=== PATIENT | female | born 1950 | race Caucasian/White ===

== ENCOUNTER → 2017-11-18 | Outpatient (CLI) | payer MEDICARE, OTHER ==
--- NOTE | 2017-11-18 15:17 | KCIC ---
PA and lateral chest radiograph and right rib radiographs. History: Right rib pain, fall, trauma to the right side, anticoagulated. Comparison: None. Findings: PA and lateral chest radiograph. Cardiomediastinal silhouette is within normal limits for size. Bilateral lung smith appear clear without evidence of infiltrate, effusion, or pneumothorax. Several thoracic levels demonstrate marginal disc osteophytes. Spinal stimulator is seen with the tip projecting at the spinal canal of the midthoracic spine. IVC filter is seen. 3 views of the right ribs. No displaced rib fractures are identified. Impression: 1. No acute cardiopulmonary process. No acute abnormality identified in the chest. Electronically signed by: Zion Nolan MD (11/18/2017 3:14 PM) [place] [id number]
== END | disposition home or self-care (01) ==
LOC: KCIC 14:44
PROVIDERS: ATTEND Physician Assistant Medical
DX: M25.78 Osteophyte, vertebrae (principal); Z79.01 Long term (current) use of anticoagulants
CPT/HCPCS: 71020; 71100

== ENCOUNTER → 2018-01-11 | Outpatient (CLI) | payer MEDICARE, OTHER ==
[~2018-01-11] MED LIST: CONTRAST GIVEN MC
[2018-01-11] MEDS: IOHEXOL 300 MG/ML 100ML VIAL. IV ×2 (15:43)
[2018-01-11 15:46] LABS: ISTAT CREATININE 0.6 mg/dL (0.6-1.1)
== END | disposition home or self-care (01) ==
LOC: KCIC CT 14:46
DX: D68.51 Activated protein C resistance (principal); R06.02 Shortness of breath; Z86.711 Personal history of pulmonary embolism
CPT/HCPCS: 71275; 82565; Q9967

== ENCOUNTER → 2018-11-09 | Outpatient (CLI) | payer MEDICARE ==
[~2018-11-09] MED LIST changes: +BACL10TA PO; -CONTRAST GIVEN MC; +CRESTOR5 MG PO; +DIPH1TAB PO; +FLUT16SP NS; +LEVO25TA55 PO; +METH5TAB4 PO; +MODA100T26 PO; +OMEP20CA9 PO; +PENT100C PO; +PRAM0.255 PO
--- NOTE | 2018-11-09 13:23 | KCIC ---
Indication: Subcutaneous lumps in the stomach region. TECHNIQUE: Ultrasound of the soft tissue anterior abdominal wall limited. COMPARISON: None FINDINGS: Centrally hypoechoic peripherally hypoechoic mass is seen in the left parasagittal aspect of the umbilicus measuring 2.5 x 2.5 x 1.7 cm without internal vascularity. Another 0.9 x 1.0 x 0.8 cm centrally hypoechoic peripherally hyperechoic nonvascular lesion is seen to the left and superior superior aspect of the umbilical region. Yet another similar lesion measuring 1.4 x 1.0 x 1.4 similar seen directly superior to the medical region in the midline. No sinus tract is seen to the skin. Scratch that IMPRESSION: Total 3 masses as described above. With history of subcutaneous Lovenox shots this may represent small hematomas. Electronically signed by: Ganga Cooper DO (11/09/2018 1:19 PM) [facility]
== END | disposition home or self-care (01) ==
LOC: KCIC US 12:06
PROVIDERS: ATTEND Physician Assistant Medical
DX: R22.2 Localized swelling, mass and lump, trunk (principal)
CPT/HCPCS: 76705

== ENCOUNTER → 2020-05-13 | Outpatient (CLI) | payer MEDICARE ==
[~2020-05-13] MED LIST changes: +OMEP20CA16 PO; -OMEP20CA9 PO
--- NOTE | 2020-05-13 15:58 | KCIC ---
EXAM: CHEST PA LATERAL, RIBS BILAT 3V INDICATION: Reason: CHEST AND RIB PAIN POST FALL 05/11/2020 / Spl. Instructions: / History: . TECHNIQUE: PA and lateral views COMPARISON: CT chest with IV contrast 01/11/2018 FINDINGS: The heart size is normal. The great vessels appear unremarkable. There is no hilar or mediastinal mass. The lungs are clear. There is no pleural effusion or pneumothorax. There are no significant osseous abnormalities. Spinal stimulator electrodes are again evident coursing up the thoracic spine to terminates at the approximate inferior endplate of T7. IMPRESSION: No active cardiopulmonary disease. PROCEDURE: RIBS BILAT 3V STUDY DATE: 05/13/2020 CLINICAL INDICATION / HISTORY: Reason: CHEST AND RIB PAIN POST FALL 05/11/2020 / Spl. Instructions: / History: . TECHNIQUE: 3 views of the bilateral ribs were obtained each COMPARISON: None FINDINGS: No displaced rib fractures. No acute or aggressive osseous lesions. No evidence of a pneumothorax or pleural effusion. IMPRESSION: No displaced rib fractures on either side. Electronically signed by: Jose Alberto Kaur MD (05/13/2020 3:55 PM) [id number]
== END | disposition home or self-care (01) ==
LOC: KCIC 14:51
PROVIDERS: ATTEND Family Medicine
DX: R07.89 Other chest pain (principal); W19.XXXA Unspecified fall, initial encounter
CPT/HCPCS: 71046; 71110

== ENCOUNTER → 2020-11-17 | Outpatient (CLI) | payer MEDICARE ==
--- NOTE | 2020-11-17 18:53 | KCIC ---
DEXA scan 11/17/2020 Clinical History: Postmenopausal female. Risk factors for osteoporosis. Technique: DEXA of the distal left forearm and left hip was performed. The Patient has pain stimulato rs in the lumbar region. FINDINGS: No previous studies are available for comparison. The bone mineral density of the distal left forearm is 0.449 g/cm2 which corresponds with a T-score o f -2.3 . This is consistent with severe osteopenia. The mean bone mineral density of the left hip is 0.841 g/sq cm. This corresponds to a T score of -0.8 . This is within the lower limits of normal. By [employer] on Osteoporosis criteria, a T score of 0 to-1 SD is considered to be within normal limits. A T score of -1 to -2.5 SD is considered osteopenia. A T score less than -2.5 SD is conside red osteoporosis Impression: 1. The mean bone mineral density of the left hip is within the lower limits of normal. 2. Severe osteopenia of the distal left forearm. Electronically signed by: Antoni Marie MD (11/17/2020 6:50 PM) [id number]
== END ==
LOC: KCIC DEXA 15:11
PROVIDERS: ATTEND Family Medicine
DX: Z78.0 Asymptomatic menopausal state (principal); M85.88 Other specified disorders of bone density and structure, other site; M81.8 Other osteoporosis without current pathological fracture
CPT/HCPCS: 77080; 77081